=== PATIENT | male | born 1975 | race Caucasian/White ===

== ENCOUNTER 2023-10-20 20:35 | Emergency (ER) | payer OTHER ==
[~2023-10-20] VITALS: Ht 170.2 cm; Wt 84.0 kg
[2023-10-20 20:50] VITALS: O2SAT 97
[2023-10-20 22:09] VITALS: BP 143/89; PULSE 75; RESP 14; TEMP 37.11408; O2SAT 98
== END 2023-10-20 22:12 | disposition home or self-care (01) ==
LOC: ER 20:35
DX: I10 Essential (primary) hypertension (principal); E11.9 Type 2 diabetes mellitus without complications; E78.00 Pure hypercholesterolemia, unspecified; Z98.890 Other specified postprocedural states
CPT/HCPCS: 99281